=== PATIENT | female | born 1995 | race Caucasian/White ===

== ENCOUNTER 2018-01-17 13:50 | Observation (INO) | payer BC | END 2018-01-17 15:55 | disposition home or self-care (01) | DRG 782 | LOC: LDRP 13:50 | PROVIDERS: ADMIT Specialist; ATTEND Specialist | DX: O48.0 Post-term pregnancy (principal); Z3A.40 40 weeks gestation of pregnancy | CPT/HCPCS: 59025; 76818; 81002; G0378 ==

== ENCOUNTER 2018-01-19 09:00 | Observation (INO) | payer BC ==
[2018-01-19] MEDS ORDERED: PREN-96 PO (11:20)
== END 2018-01-19 11:05 | disposition home or self-care (01) | DRG 782 ==
LOC: LDRP 09:00
PROVIDERS: ADMIT Obstetrics & Gynecology; ATTEND Obstetrics & Gynecology
DX: O48.0 Post-term pregnancy (principal); Z3A.40 40 weeks gestation of pregnancy
CPT/HCPCS: 59025; 76818; 81002; G0378

== ENCOUNTER 2018-01-21 09:00 | Observation (INO) | payer BC ==
[~2018-01-21 09:00] MED LIST: PREN-96 PO
== END 2018-01-21 10:15 | disposition home or self-care (01) | DRG 782 ==
LOC: LDRP 09:00
PROVIDERS: ADMIT Obstetrics & Gynecology; ATTEND Obstetrics & Gynecology
DX: O48.0 Post-term pregnancy (principal); Z3A.40 40 weeks gestation of pregnancy
CPT/HCPCS: 59025; 76818; 81002; G0378

== ENCOUNTER 2018-01-23 15:03 | Observation (INO) | payer BC ==
[~2018-01-23] VITALS: Ht 170.2 cm; Wt 112.5 kg
[2018-01-23] MEDS ORDERED: LACTATED RINGER'S 1,000 ML IV SCH (16:33)
[2018-01-23] MEDS ORDERED: LACT. RINGERS/OXYTOCIN 20UNITS 1,000 ML IV SCH (16:33)
[2018-01-23] MEDS ORDERED: SODIUM CHLORIDE 0.9% 1,000 ML IV SCH (16:33)
[2018-01-23] MEDS ORDERED: PHISODERM TOP SOLN 240ML BTL TOP PRN (16:45)
[2018-01-23] MEDS ORDERED: DERMOPLAST 60ML BOTTLE TOP PRN (16:45)
[2018-01-23] MEDS ORDERED: WITCH HAZEL-GLYCERIN PAD TOP PRN (16:45)
[2018-01-23] MEDS ORDERED: METHYLERGONOVINE MALEATE 0.2 MG/ML AMP IM PRN (16:45)
[2018-01-23] MEDS ORDERED: LIDOCAINE 2% (LOCAL ANESTH.) PF 5ml SDV ID ONE (16:45)
[2018-01-23 17:44] LABS: Basophils # (auto) 0 uL; Basophils % (auto) 0.4 % (0.0-2.0); Eosinophils # (auto) 0.1 uL; Hematocrit 38.7 % (36.0-46.0); Lymphocytes # (auto) 1.9 uL; Lymphocytes % (auto) 15.1 % (10.0-50.0); Mean Corpuscular Hemoglobin 29.5 pg (28.0-32.0); Mean Corpuscular Hgb Conc. 33.6 g/dL (32.0-36.0); Mean Corpuscular Volume 88.1 fL (80.0-100.0); Monocytes # (auto) 0.5 uL; Monocytes % (auto) 4.2 % (0.0-12.0); Neutrophils % (auto) 79.3 % (37.0-80.0); Platelet Count (auto) 251 10^3/uL (140-450); Red Cell Distribution Width 13.9 % (11.8-14.3); White Blood Cell 12.6 10^3/uL (4.4-10.8)
[2018-01-23 17:51] LABS: Urine Bacteria FEW /hpf (None Seen); Urine Blood Negative /uL (Negative); Urine WBC 1 /hpf (0 - 5)
[2018-01-23 17:56] LABS: Albumin 2.5 g/dL (3.4-5.0); BUN/Creatinine Ratio 11.1; Calcium 8.5 mg/dL (8.5-10.1); Potassium 3.7 mmol/L (3.5-5.1)
[2018-01-23 17:58] LABS: Bilirubin, Total 0.3 mg/dL (0.2-1.0); INR 0.87 (0.9-1.15); Partial Thromboplastin Time 30.6 sec (23.78-33.04); Prothrombin Time 9.4 sec (9.27-12.13); Total Protein 7.4 g/dL (6.4-8.2)
[2018-01-23 18:03] LABS: Alcohol, Urine < 3.0 mg/dL (0-5); Amphetamine Screen, Urine NEGATIVE (NEGATIVE); Barbiturate Scree,Urine NEGATIVE (NEGATIVE); Benzodiazephine Screen, Urine NEGATIVE (NEGATIVE); Cannabinoid Screen, Urine NEGATIVE (NEGATIVE); Cocaine Screen, Urine NEGATIVE (NEGATIVE); Opiate Scree,Urine NEGATIVE (NEGATIVE); Phencyclidine Screen, Urine NEGATIVE (NEGATIVE)
[2018-01-24 07:06] LABS: RPR Non Reactive (Non Reactive)
[2018-01-24] MEDS ORDERED: LIDOCAINE HCL 2 %PF INJ 10ML AMP IJ ONE (09:30)
[2018-01-24] MEDS ORDERED: fentaNYL CITRATE 100 MCG/2 ML VL IV ONE ×2 (09:30→11:00)
[2018-01-24] MEDS ORDERED: LIDOCAINE 2% (LOCAL ANESTH.) PF 5ml SDV IJ ONE (09:30)
[2018-01-24] MEDS ORDERED: ePHEDrine SULFATE 50 MG/ML AMP IV ONE ×2 (09:30→11:00)
[2018-01-24] MEDS ORDERED: fentaNYL W ROPIVACAINE 150 ML EPI SCH ×2 (09:30→11:00)
[2018-01-24] MEDS ORDERED: NALOXONE HCL 0.4 MG/ML VIAL IV ONE ×2 (09:30→11:00)
[2018-01-24] MEDS ORDERED: SODIUM CHLORIDE 0.9% 500 ML IV PRN (10:48)
[2018-01-24] MEDS ORDERED: ONDANSETRON HCL 4 MG/2 ML VIAL IV PRN (16:45)
[2018-01-24] MEDS ORDERED: ACETAMINOPHEN 325 MG TAB PO PRN (16:45)
[2018-01-24] MEDS ORDERED: TETANUS-DIPTH-ACEL PERTUSSIS 0.5ML SYRG IM ONE (20:45)
[2018-01-24 22:54] VITALS: BP 121/62
[2018-01-25] MEDS: IBUPROFEN 600 MG TAB PO PRN ×2 (01:36→17:23)
[2018-01-25 03:00] VITALS: BP 96/54
[2018-01-25 06:57] VITALS: BP 111/73
[2018-01-25 11:19] VITALS: BP 116/60
[2018-01-25 15:36] VITALS: BP 122/68
== END 2018-01-25 18:08 | disposition home or self-care (01) | DRG 781 ==
LOC: LDRP 15:03
PROVIDERS: ADMIT Specialist; ATTEND Specialist
DX: O48.0 Post-term pregnancy (principal); O26.893 Other specified pregnancy related conditions, third trimester; R10.9 Unspecified abdominal pain; Z3A.40 40 weeks gestation of pregnancy
CPT/HCPCS: 36415; 51702; 59025; 62282; 76818; 80053; 80307; 81001; 81002; 85025; 85610; 85730; 86592; 86850; 86900; 86901; 88307; 90715; 94760; 96372; 96374; G0378; J2001; J2210; J2405; J2590; J3010; 59409; 96361; 96365; 96366

== ENCOUNTER 2020-08-03 08:54 | Observation (INO) | payer BC | END 2020-08-03 11:31 | disposition home or self-care (01) | LOC: LDRP 08:54 | PROVIDERS: ADMIT Obstetrics & Gynecology; ATTEND Obstetrics & Gynecology | DX: O42.92 Full-term premature rupture of membranes, unspecified as to length of time between rupture and onset of labor (principal); O26.893 Other specified pregnancy related conditions, third trimester; R10.9 Unspecified abdominal pain; Z3A.39 39 weeks gestation of pregnancy | CPT/HCPCS: 59025; 76815; 81002; 84112; G0378; Q0114 ==

== ENCOUNTER 2020-08-06 08:35 | Observation (INO) | payer BC | END 2020-08-06 09:37 | disposition home or self-care (01) | LOC: LDRP 08:35 | PROVIDERS: ADMIT Obstetrics & Gynecology; ATTEND Obstetrics & Gynecology | DX: O48.0 Post-term pregnancy (principal); O34.63 Maternal care for abnormality of vagina, third trimester; N89.8 Other specified noninflammatory disorders of vagina; Z3A.40 40 weeks gestation of pregnancy | CPT/HCPCS: 59025; 76818; 81002; G0378 ==

== ENCOUNTER 2020-08-08 07:54 | Observation (INO) | payer BC | END 2020-08-08 10:40 | disposition home or self-care (01) | LOC: LDRP 07:54 | PROVIDERS: ADMIT Specialist; ATTEND Specialist | DX: O48.0 Post-term pregnancy (principal); Z3A.40 40 weeks gestation of pregnancy | CPT/HCPCS: 59025; 76818; 81002; G0378 ==

== ENCOUNTER 2020-08-10 09:38 | Observation (INO) | payer BC | END 2020-08-10 12:55 | disposition home or self-care (01) | LOC: LDRP 09:38 | PROVIDERS: ADMIT Obstetrics & Gynecology; ATTEND Obstetrics & Gynecology | DX: O48.0 Post-term pregnancy (principal); O62.9 Abnormality of forces of labor, unspecified; O42.92 Full-term premature rupture of membranes, unspecified as to length of time between rupture and onset of labor; O26.893 Other specified pregnancy related conditions, third trimester; H53.8 Other visual disturbances; Z3A.40 40 weeks gestation of pregnancy | CPT/HCPCS: 76818; 84112; G0378; Q0114; 59025; 81002 ==

== ENCOUNTER 2020-08-12 05:04 | Inpatient (IN) | payer MEDICAID, BC ==
[~2020-08-12] VITALS: Ht 30.5 cm; Wt 0.5 kg
[2020-08-12] MEDS ORDERED: PHISODERM TOP SOLN 240ML BTL TOP PRN (05:30)
[2020-08-12] MEDS ORDERED: PROMETHAZINE HCL 25 MG/ML 1ML IM PRN (05:30)
[2020-08-12] MEDS ORDERED: BUTORPHANOL TARTRATE 2 MG/1 ML VIAL IV PRN ×2 (05:30)
[2020-08-12] MEDS ORDERED: DERMOPLAST 60ML BOTTLE TOP PRN (05:30)
[2020-08-12] MEDS ORDERED: WITCH HAZEL-GLYCERIN PAD TOP PRN (05:30)
[2020-08-12] MEDS ORDERED: LIDOCAINE 2%HCL (LOCAL ANESTH.) INJ 20ML MDV IJ ONE (05:30)
[2020-08-12 06:04] LABS: Basophils # (auto) 0 10 ^3/uL (0-0.2); Basophils % (auto) 0.4 % (0.0-2.0); Eosinophils # (auto) 0.2 10 ^3/uL (0-0.8); Eosinophils % (auto) 1.7 % (0.0-7.0); Hematocrit 35.5 % (36.0-46.0); Hemoglobin 12.3 g/dL (12.2-16.2); Lymphocytes # (auto) 1.9 10 ^3/uL (0.4-5.4); Lymphocytes % (auto) 16.4 % (10.0-50.0); Mean Corpuscular Hemoglobin 29.2 pg (28.0-32.0); Mean Corpuscular Hgb Conc. 34.6 g/dL (32.0-36.0); Mean Corpuscular Volume 84.2 fL (80.0-100.0); Monocytes # (auto) 0.6 10 ^3/uL (0-1.3); Monocytes % (auto) 4.8 % (0.0-12.0); Neutrophils # (auto) 8.8 10 ^3/uL (1.6-8.6); Neutrophils % (auto) 76.7 % (37.0-80.0); Nucleated Red Blood Cells % 0.1 %; Red Blood Cells 4.21 10^6/uL (4.0-5.20); Red Cell Distribution Width 14.5 % (11.8-14.3); White Blood Cell 11.5 10^3/uL (4.4-10.8)
[2020-08-12 06:12] LABS: Urine Bacteria FEW /hpf (None Seen); Urine Blood Negative /uL (Negative); Urine Mucus FEW (None Seen); Urine Specific Gravity 1.026 (1.001-1.035); Urine WBC 2 /hpf (0 - 5)
[2020-08-12 06:24] LABS: Albumin 2.5 g/dL (3.4-5.0); Calcium 8.4 mg/dL (8.5-10.1); Potassium 3.7 mmol/L (3.5-5.1)
[2020-08-12 06:25] LABS: INR 0.94 (0.9-1.15); Partial Thromboplastin Time 27.4 sec (23.0-31.2)
[2020-08-12 06:29] LABS: BUN/Creatinine Ratio 11.8; Bilirubin, Total 0.3 mg/dL (0.2-1.0); Total Protein 7.2 g/dL (6.4-8.2)
[2020-08-12] MEDS: LACTATED RINGER'S 1,000 ML IV SCH ×2 (06:33→15:13)
[2020-08-12 06:38] LABS: Alcohol, Urine < 3.0 mg/dL (0-10); Amphetamine Screen, Urine NEGATIVE (NEGATIVE); Barbiturate Scree,Urine NEGATIVE (NEGATIVE); Benzodiazephine Screen, Urine NEGATIVE (NEGATIVE); Cannabinoid Screen, Urine NEGATIVE (NEGATIVE); Cocaine Screen, Urine NEGATIVE (NEGATIVE); Opiate Scree,Urine NEGATIVE (NEGATIVE); Phencyclidine Screen, Urine NEGATIVE (NEGATIVE)
[2020-08-12] MEDS: miSOPROStol 50 MCG per PRE-CUT 1/2 TAB PO PRN ×2 (08:31→13:07)
[2020-08-12] MEDS ORDERED: miSOPROStol 100 mcg TAB SL ONE (12:11)
[2020-08-12] MEDS ORDERED: LACT. RINGERS/OXYTOCIN 20UNITS 1,000 ML IV ONE (18:30)
[2020-08-12] MEDS ORDERED: LACT. RINGERS/OXYTOCIN 20UNITS 1,000 ML IV SCH (18:30)
[2020-08-12] MEDS ORDERED: ePHEDrine SULFATE 50 MG/ML AMP IV ONE (20:45)
[2020-08-12] MEDS ORDERED: LACTATED RINGER'S 1,000 ML IV ONE (20:45)
[2020-08-12] MEDS ORDERED: NALOXONE HCL 0.4 MG/ML VIAL IV ONE (20:45)
[2020-08-12] MEDS ORDERED: ROPIVACAINE HCL 200 ML EPI SCH (20:45)
[2020-08-13] VITALS (9 sets, daily range): BP systolic 118–146; BP diastolic 58–82
[2020-08-13] MEDS ORDERED: TERBUTALINE SULFATE 1 MG/ML 1ML VIAL SC ONE (01:45)
[2020-08-13] MEDS ORDERED: LACT. RINGERS/OXYTOCIN 20UNITS 1,000 ML IV SCH ×2 (01:45→06:15)
[2020-08-13] MEDS ORDERED: LACT. RINGERS/OXYTOCIN 20UNITS 1,000 ML IV ONE ×3 (05:15→12:00)
[2020-08-13] MEDS: LACTATED RINGER'S 1,000 ML IV SCH ×2 (05:44→13:30)
[2020-08-13] MEDS: IBUPROFEN 600 MG TAB PO PRN (06:06)
[2020-08-13 07:06] LABS: RPR Non Reactive (Non Reactive)
[2020-08-13] MEDS: ACETAMINOPHEN 325 MG TAB PO PRN ×2 (09:27→16:47)
[2020-08-13] MEDS ORDERED: METHYLERGONOVINE MALEATE 0.2 MG/ML AMP IM ONE ×2 (11:10→11:16)
[2020-08-13] MEDS ORDERED: miSOPROStol 100 mcg TAB SL ONE (11:45)
[2020-08-13] MEDS ORDERED: miSOPROStol 100 mcg TAB PR ONE (11:45)
[2020-08-13] MEDS ORDERED: METHYLERGONOVINE MALEATE 0.2 MG/ML AMP IM PRN (11:45)
[2020-08-13 13:34] LABS: Basophils # (auto) 0.1 10 ^3/uL (0-0.2); Basophils % (auto) 0.6 % (0.0-2.0); Eosinophils # (auto) 0.1 10 ^3/uL (0-0.8); Eosinophils % (auto) 0.5 % (0.0-7.0); Hematocrit 38.9 % (36.0-46.0); Hemoglobin 12.9 g/dL (12.2-16.2); Lymphocytes # (auto) 1.6 10 ^3/uL (0.4-5.4); Lymphocytes % (auto) 12.1 % (10.0-50.0); Mean Corpuscular Hgb Conc. 33.1 g/dL (32.0-36.0); Mean Corpuscular Volume 84.6 fL (80.0-100.0); Monocytes # (auto) 0.7 10 ^3/uL (0-1.3); Monocytes % (auto) 5.2 % (0.0-12.0); Neutrophils # (auto) 10.5 10 ^3/uL (1.6-8.6); Neutrophils % (auto) 81.6 % (37.0-80.0); Red Cell Distribution Width 14.1 % (11.8-14.3); White Blood Cell 12.9 10^3/uL (4.4-10.8)
[2020-08-13] MEDS: ceFAZolin 1GM/50ML 50 ML IV SCH (15:47)
[2020-08-13 16:32] LABS: INR 0.94 (0.9-1.15); Partial Thromboplastin Time 28.1 sec (23.0-31.2)
[2020-08-14] MEDS: ceFAZolin 1GM/50ML 50 ML IV SCH ×2 (00:13→08:23)
[2020-08-14 03:00] VITALS: BP 123/75
[2020-08-14] MEDS: IBUPROFEN 600 MG TAB PO PRN (06:31)
[2020-08-14] MEDS: ACETAMINOPHEN 325 MG TAB PO PRN (06:32)
[2020-08-14 07:00] VITALS: BP 136/72
[2020-08-14 08:18] LABS: Basophils # (auto) 0.1 10 ^3/uL (0-0.2); Basophils % (auto) 0.5 % (0.0-2.0); Eosinophils # (auto) 0.2 10 ^3/uL (0-0.8); Eosinophils % (auto) 1.5 % (0.0-7.0); Hematocrit 34.1 % (36.0-46.0); Hemoglobin 11.2 g/dL (12.2-16.2); Lymphocytes # (auto) 1.8 10 ^3/uL (0.4-5.4); Lymphocytes % (auto) 16.4 % (10.0-50.0); Mean Corpuscular Hgb Conc. 32.8 g/dL (32.0-36.0); Mean Corpuscular Volume 85.5 fL (80.0-100.0); Monocytes # (auto) 0.5 10 ^3/uL (0-1.3); Monocytes % (auto) 4.1 % (0.0-12.0); Neutrophils # (auto) 8.7 10 ^3/uL (1.6-8.6); Neutrophils % (auto) 77.5 % (37.0-80.0); Red Blood Cells 3.99 10^6/uL (4.0-5.20); Red Cell Distribution Width 14.4 % (11.8-14.3); White Blood Cell 11.2 10^3/uL (4.4-10.8)
[2020-08-14 08:47] LABS: INR 0.97 (0.9-1.15); Partial Thromboplastin Time 27.3 sec (23.0-31.2)
[2020-08-14] MEDS ORDERED: SODIUM CHL 0.9% 1000 ML BAG IV SCH (10:00)
[2020-08-14] MEDS ORDERED: LACT. RINGER'S W OXYTOCIN 20UNITS/1000 ML IV SCH (10:00)
[2020-08-14 11:00] VITALS: BP 132/72
[2020-08-14 12:12] VITALS: BP 132/72
== END 2020-08-14 12:12 | disposition home or self-care (01) | DRG 807 ==
LOC: LDRP 05:04
PROVIDERS: ADMIT Obstetrics & Gynecology; ATTEND Obstetrics & Gynecology
PROC: 10E0XZZ Delivery of Products of Conception, External Approach (ICD-10-PCS; principal; 2020-08-13)
PROC: 3E0R3BZ Introduction of Anesthetic Agent into Spinal Canal, Percutaneous Approach (ICD-10-PCS; 2020-08-13)
PROC: 00HU33Z Insertion of Infusion Device into Spinal Canal, Percutaneous Approach (ICD-10-PCS; 2020-08-13)
DX: O48.0 Post-term pregnancy (principal); Z37.0 Single live birth; Z3A.40 40 weeks gestation of pregnancy; Z20.822 Contact with and (suspected) exposure to COVID-19; O69.81X0 Labor and delivery complicated by cord around neck, without compression, not applicable or unspecified
CPT/HCPCS: 36415; 59409; 80053; 80307; 81001; 81002; 85025; 85362; 85384; 85610; 85730; 86592; 86850; 86900; 86901; 86920; 87426; 94760; 94762; 96360; 96361; 96372; G0378; J0690; J2590